=== PATIENT | female | born 1995 | race Caucasian/White ===

== ENCOUNTER 2019-05-10 10:32 | Day surgery (SDC) | payer MEDICAID ==
[2019-05-10 11:49] LABS: ADD MAN DIFF? NO
[2019-05-10 11:52] LABS: BASOPHILS % 0.3 % (0.0-2.0); EOSINOPHILS # 0.1 10^3/ul (0.0-0.5); EOSINOPHILS % 1.4 % (0.0-7.0); HEMATOCRIT 37.3 % (37.0-47.0); HEMOGLOBIN 12.2 g/dl (12.0-16.0); LYMPHOCYTES # 1.9 10^3/ul (0.8-2.9); MEAN CORPUSCULAR HEMOGLOBIN 30.6 pg (29.0-33.0); MEAN CORPUSCULAR HGB CONC 32.7 g/dl (32.0-37.0); MEAN CORPUSCULAR VOLUME 93.5 fl (82.0-101.0); MEAN PLATELET VOLUME 10.6 fl (7.4-10.4); MONOCYTE # 0.5 10^3/ul (0.3-0.9); MONOCYTES % 7.8 % (0.0-11.0); NEUTROPHIL # 3.4 10^3/ul (1.6-7.5); NEUTROPHILS % 58.2 % (39.0-77.0); PLATELET COUNT 178 10^3/UL (140-415); RED BLOOD COUNT 3.99 10^6/ul (4.20-5.40); RED CELL DISTRIBUTION WIDTH 13.2 % (11.5-14.5)
[2019-05-10 11:52] LABS: WHITE BLOOD COUNT 5.9 10^3/ul (4.8-10.8)
[2019-05-10] MEDS: LACTATED RINGER'S 1,000 ML IV (12:05)
[2019-05-10] MEDS ORDERED: DEXAMETHASONE 4 MG/ML 5 ML INJ (13:00)
[2019-05-10] MEDS ORDERED: ROCURONIUM 50 MG INJ (13:09)
[2019-05-10] MEDS ORDERED: SUGAMMADEX SODIUM 200 MG/2 ML VIAL IV (13:10)
[2019-05-10] MEDS ORDERED: ONDANSETRON 4 MG INJ (13:10)
[2019-05-10] MEDS ORDERED: FENTAnyl 50 MCG/ML VIAL (13:10)
[2019-05-10] MEDS ORDERED: MIDAZOLAM 1 MG/ML 2 ML INJ (13:10)
[2019-05-10] MEDS ORDERED: METOCLOPRAMIDE 10 MG INJ (13:10)
[2019-05-10] MEDS ORDERED: CEFAZOLIN 1 GM INJ ×2 (13:11→13:24)
[2019-05-10] MEDS ORDERED: PROPOFOL 20 ML (13:11)
[2019-05-10] MEDS ORDERED: LIDOCAINE 100 MG SYRINGE (13:11)
[2019-05-10] MEDS ORDERED: HYDROmorphONE 1 MG/5 ML IV SYRINGE IV (14:00)
[2019-05-10] MEDS ORDERED: ONDANSETRON 4 MG INJ IV (14:00)
[2019-05-10] MEDS ORDERED: PROCHLORPERAZINE 10 MG INJ IV (14:00)
[2019-05-10] MEDS: MEPERIDINE 25 MG INJ IV (14:16)
[2019-05-10] MEDS: FENTAnyl 50 MCG/ML VIAL IV (14:39)
[2019-05-10] MEDS: OXYCODONE/ACETAMINOPHEN (5/325) TAB PO (16:17)
== END 2019-05-10 16:30 | disposition home or self-care (01) ==
LOC: SDS 10:32
DX: Z30.2 Encounter for sterilization (principal)
CPT/HCPCS: 58670; 84702; 85025; 86850; 86900; 86901